=== PATIENT | female | born 1970 | race Caucasian/White ===

== ENCOUNTER 2016-10-19 01:42 | Emergency (ER) | payer OTHER ==
--- NOTE | ~2016-10-19 | CT2 ---
[facility] A Service of [facility] & [facility] RADIOLOGY TEXT RESULTS PATIENT: HA NIXON LOCATION: SED : 70 UNIT #: [id number] AGE: [address]: Peterson Diggs MD SEX: F ORDER DR: [id number] [place] [id number] MR#: [id number] Acc #: [id number] NAME: HA NIXON : 1970 SEX: F STUDY DATE/TIME: 10/19/2016 02:21 UNIT: SED ROOM: STUDY DESCRIPTION: CT Abd and Pelv W Cont Attending Physician: Peterson Diggs M.D. Ordering Physician: Peterson Diggs M.D. Primary Care Physician: Alberto Calle M.D. MEDICAL IMAGING REPORT This report is preliminary unless electronic signature is present. EXAM CT abdomen and pelvis, 10/19 at 02:21 hours INDICATION Right lower quadrant pain with nausea that started at 05:30 p.m. last night. Pain is currently 4/10. TECHNIQUE Axial images were obtained through the abdomen and pelvis following IV contrast administration. Multiplanar reformats were obtained. This CT exam was performed with one or more of the following radiation dose reduction techniques: automatic exposure control, adjustment of mA and/or kV according to patient size, and iterative reconstruction. COMPARISON No comparison. FINDINGS ABDOMEN: Lung bases are clear. Gallbladder is normal. There is no biliary obstruction. Multiple small bilateral nonobstructing renal stones are seen. There are tiny right side renal cysts. Solid organs are otherwise normal. Unopacified GI tract is normal. No adenopathy. PELVIS: Urinary bladder is normal. There is free fluid in the pelvis. There are 2 cystic lesions in the cul-de-sac. 1 to the left of midline measures 3.4 cm and 1 to the right of midline measures 3.3 cm. These are presumably ovarian cysts. The uterus is surgically absent. The appendix is normal. The remainder of the unopacified GI tract is grossly normal as well. Calcifications in the pelvis are felt to represent phleboliths. IMPRESSION 1. The GI tract, including the appendix, is normal allowing for the lack STS. [facility] [place] A Service of [facility] & [facility] RADIOLOGY TEXT RESULTS PATIENT: HA NIXON LOCATION: SED : 70 UNIT #: [id number] AGE: [address]: Peterson Diggs MD SEX: F ORDER DR: of oral contrast. 2. Small bilateral nonobstructing renal stones. 3. Hysterectomy. There are 2 cystic lesions in the cul-de-sac, 1 measuring 3.4 cm and the other measuring 3.3 cm. These are presumably ovarian cysts. 4. Free fluid in the cul-de-sac is nonspecific and may be physiologic from cyst rupture. Uterus is surgically absent. Dictated by... Kris Pro Jr., M.D. THIS IS AN ELECTRONICALLY VERIFIED REPORT Kris Pro Jr., M.D. at 10/19/2016 11:00 PM RAMU/manoj TD: 10/19/2016 17:00 JOB #: [id number] MEDICAL IMAGING REPORT
[2016-10-19 01:28] LABS: URINE SOURCE CLEAN CATCH
[2016-10-19 01:30] LABS: URINE APPEARANCE CLEAR; URINE BILIRUBIN NEG (NEG); URINE BLOOD 2+ (NEG); URINE COLOR YELLOW; URINE GLUCOSE NEG (NORM); URINE KETONE NEG (NEG); URINE LEUKOCYTE ESTERASE NEG (NEG); URINE NITRATE NEG (NEG); URINE PH 5.5 (5-8); URINE PROTEIN NEG (NEG); URINE SPECIFIC GRAVITY >=1.030 (1.003-1.035); URINE UROBILINOGEN 0.2 MG/DL (NORM)
[2016-10-19 01:36] LABS: CULTURE INDICATED? NO; MICRO INDICATED? YES; URINE BACTERIA NEG (NEG)
[2016-10-19 01:37] LABS: URINE MUCUS PRESENT; URINE SQUAMOUS EPITHELIAL CELL MODERATE /[HPF]
[2016-10-19 01:42] LABS: BASOPHIL% 0.3 % (0-2.5); EOSINOPHIL# 0.1 X10e3 (0-0.7); EOSINOPHIL% 1.4 % (0.0-7.0); HEMOGLOBIN 12.9 gm/dL (12.0-16.0); LYMPHOCYTE# 1.6 X10e3 (1.0-3.5); MEAN CELL VOLUME 91.2 FL (83-96); MEAN CORPUSCULAR HEMOGLOBIN 30.2 PG (28-34); MEAN CORPUSCULAR HGB CONC 33.2 g/dL (30-36); MEAN PLATELET VOLUME 9.1 FL (6.5-11.5); MONOCYTE# 0.8 X10e3 (0-1.0); MONOCYTE% 7.5 % (3.0-12.0); NEUTROPHIL# 7.9 X10e3 (1.5-7.1); NEUTROPHIL% 75.8 % (40-75); PLATELET COUNT 192 X10e3 (140-420); RED BLOOD COUNT 4.28 X10e (3.90-5.30); RED CELL DISTRIBUTION WIDTH 13.9 % (11.0-15.5); WHITE BLOOD COUNT 10.4 X10e3 (4.0-10.5)
[~2016-10-19 01:42] MED LIST: CELEXA20 MG; DEXILANT60 MG; LAMICTAL100 MG; LINZESS145 MCG; RIZATRIPTAN10 M2; SEROQUEL50 M1; SUMATRIPTAN SU100 MG; TOPAMAX50 MG; VISTARIL50 MG
[2016-10-19 01:44] LABS: DIFF IND NO
[2016-10-19 01:58] LABS: ALBUMIN SERUM 3.9 g/dL (3.5-5.0); ALKALINE PHOSPHATASE 55 U/L (32-92); ALT (SGPT) 11 U/L (10-40); AMYLASE 30 U/L (0-46); AST (SGOT) 14 U/L (10-42); BILIRUBIN, DIRECT 0.1 mg/dL (0.0-0.2); BILIRUBIN,INDIRECT 0.3 mg/dL (0.0-0.9); BILIRUBIN,TOTAL 0.4 mg/dL (0.2-2.0); BLOOD UREA NITROGEN 21 mg/dL (9-23); CALCIUM SERUM 8.8 mg/dL (8.4-10.2); CARBON DIOXIDE 19 mmol/L (22-31); CHLORIDE 109 mmol/L (100-111); CREATININE SERUM 0.7 mg/dL (0.6-1.4); GLOM FILT RATE Estimated ABOVE60 mL/min (>60); GLUCOSE FASTING 111 mg/dL (70-110); LIPASE 40 U/L (22-51); PROTEIN TOTAL SERUM 6.8 g/dL (6.0-8.3); SODIUM 136 mmol/L (135-145)
== END 2016-10-19 03:17 | disposition home or self-care (01) ==
LOC: SED 01:42
PROVIDERS: Emergency Medicine
DX: R10.31 Right lower quadrant pain (principal); R11.0 Nausea; G43.909 Migraine, unspecified, not intractable, without status migrainosus; F31.9 Bipolar disorder, unspecified; K58.9 Irritable bowel syndrome, unspecified; F17.210 Nicotine dependence, cigarettes, uncomplicated; Z90.710 Acquired absence of both cervix and uterus; Z98.890 Other specified postprocedural states
CPT/HCPCS: 36415; 74177; 80048; 80076; 81003; 82150; 83690; 85025; 99284; Q9967